=== PATIENT | male | born 1940 | race Caucasian/White ===

== ENCOUNTER 2024-03-09 16:15 | Emergency (ER) | payer OTHER ==
--- OUTSIDE RECORDS SUMMARY | 2024-03-09 16:18 | XMS REPORT | Continuity of Care Document ---
Author Name Unknown Address [address] [place] [address] [facility] Address [address] [place] [address] Care Team Providers Care Farmer [employer] Name Role Phone Artem Nunez Primary Care Physician [phone] TAYLOR TYLER Attending Clinician Anival Ceja MD Attending Clinician [phone] ANIVAL PIRES Attending Clinician Anival Huitron MD Admitting Clinician [phone] ANIVAL PIRES Admitting Clinician Pat littlejohn Payers Payer Name Policy Type Policy Number Effective Date Expirati on Date Source [employer] MANAGED MEDICARE PPO-HAMMAD [id number] 2022 00:00:00 Allergies, Adverse Reactions, Alerts Allergy Name Allergy Type Status Severity Reaction(s) Onset Date Inactive Date Treating Clinician Comments Source NO KNOWN ALLERGIE S Drug Class Active [facility] Social History Social Habit Start Date Stop Date Quantity Comments Source [facility] function 2024-01-30 00:00:00 2024-01-30 00:00:00 [facility] Exposure to SARS-CoV-2 (event) 2022-10-27 00:00:00 2022-11-06 10:03:00 Not sure [facility] Tobacco use and exposure 2022-10-18 00:00:00 2022-10-18 00:00:00 Smokeless tobacco non-user [facility] Sex assigned at 1940 00:00:00 1940 00:00:00 [facility] Smoking Status Start Date Stop Date Source Never smoked tobacco [facility] Medications Ordered Medication Name Filled Medication Name Start Date Stop Date Current Medication? Ordering Clinician Indication Dosage Frequency Signature (SIG) Comments Components Source donepeziL 5 mg tablet 01-29 10:17: 59 Yes 5mg Take 1 tablet by mouth at bedtime. [facility] memantine 5 mg tablet 01-29 00:00: 00 Yes [id number] 5mg Take 1 tablet by mouth in the morning. [facility] neomycin-po lymyxin-dex amethasone (MAXITROL) 3.5 mg/g-10,000 unit/g-0.1 % ophthalmic ointment 11-07 17:15: 00 11-07 17:19 :31 No PRN, Starting on Sat11/07/22 at 1115, Until Sat11/07/22 at 1119, Routine, Intra-op [facility] sodium chloride (NS) injection 11-07 17:13: 00 11-07 17:19 :31 No PRN, Starting on Sat11/07/22 at 1113, Until Sat11/07/22 at 1119, Routine, Intra-op [facility] dexamethaso ne (DECADRON PHOSPHATE) injection 11-07 17:13: 00 11-07 17:19 :31 No PRN, Starting on Sat11/07/22 at 1113, Until Sat11/07/22 at 1119, Routine, Intra-op [facility] ceFAZolin (ANCEF) injection 11-07 17:13: 00 11-07 17:19 :31 No PRN, Starting on Sat11/07/22 at 1113, Until Sat11/07/22 at 1119, GOLDEN, Intra-op [facility] carbachoL (MIOSTAT) 0.01 % intraocular injection 11-07 17:13: 00 11-07 17:19 :31 No PRN, Starting on Sat11/07/22 at 1113, Until Sat11/07/22 at 1119, Routine, Intra-op [facility] EPINEPHrine 1:1,000 (1 mg/mL) (ADRENALIN) injection 11-07 17:02: 00 11-07 17:19 :31 No PRN, Starting on Sat11/07/22 at 1102, Until Sat11/07/22 at 1119, Routine, Intra-op [facility] balanced salt irrig soln comb1 (BSS PLUS) ophthalmic solution 500 mL bag 11-07 17:02: 00 11-07 17:19 :31 No PRN, Starting on Sat11/07/22 at 1102, Until Sat11/07/22 at 1119, Routine, Intra-op [facility] chondroitin sulf-sod hyaluronate (DUOVISC VISCO ELASTIC) intraocular injection 11-07 17:02: 00 11-07 17:19 :31 No PRN, Starting on Sat11/07/22 at 1102, Until Sat11/07/22 at 1119, Routine, Intra-op [facility] water for irrigation irrigation solution 11-07 16:55: 00 11-07 17:19 :31 No PRN, Starting on Sat11/07/22 at 1055, Until Sat11/07/22 at 1119, Routine, Intra-op [facility] Hyaluronida se, Human Recomb. (HYLENEX) injection 11-07 16:51: 00 11-07 17:19 :31 No PRN, Starting on Sat11/07/22 at 1051, Until Sat11/07/22 at 1119, Routine, Intra-op [facility] eye block syringe 11 mL 11-07 16:51: 00 11-07 17:19 :31 No PRN, Starting on Sat11/07/22 at 1051, Until Sat11/07/22 at 1119, Intra-op [facility] cyclopent 1%-tropic 1%-phenyl 2.5%-ketor 0.5% (MYDRIATIC #5) ophthalmic solution syringe 0.5 mL 11-07 15:30: 00 11-07 15:27 :00 No .5mL 0.5 mL, Right Eye, ONCE, 1 dose, On Sat11/07/22 at 0930, Routine, DSU Pre-op [facility] lactated ringers IV infusion 1,000 mL 11-07 15:30: 00 11-07 15:26 :00 No 1000mL at 42 mL/hr, 1,000 mL, IV Infusion, ONCE, 1 dose, On Sat11/07/22 at 0930, Routine, DSU Pre-op [facility] lisinopriL 20 mg tablet 11-07 11:59: 54 01-29 00:00 :00 No 20mg Take 1 tablet by mouth in the morning. [facility] amLODIPine 5 mg tablet 11-07 11:59: 54 01-29 00:00 :00 No 5mg Take 5 mg by mouth in the morning. [facility] amLODIPine 5 mg tablet 10-08 00:00: 00 Yes 5mg Take 1 tablet by mouth in the morning. [facility] lisinopriL 20 mg tablet 10-08 00:00: 00 Yes 20mg Take 1 tablet by mouth in the morning. [facility] Vital Signs Vital Name Observation Time Observation Value Comments S ource Systolic blood pressure 2024-02-11 16:33:00 115 mm[Hg] [facility] Diastolic blood pressure 2024-02-11 16:33:00 70 mm[Hg] [facility] Heart rate 2024-02-11 16:33:00 56 /min [facility] Body height 2024-02-11 16:33:00 177.8 cm [facility] Body weight 2024-02-11 16:33:00 84.777 kg [facility] BMI 2024-02-11 16:33:00 26.82 kg/m2 [facility] Oxygen saturation in Arterial blood by Pulse oximetry 2024-02-11 16:33:00 96 /min [facility] Systolic blood pressure 2024-01-30 15:36:00 168 mm[Hg] [facility] Diastolic blood pressure 2024-01-30 15:36:00 84 mm[Hg] [facility] BMI 2024-01-30 15:14:00 26.80 kg/m2 [facility] Oxygen saturation in Arterial blood by Pulse oximetry 2024-01-30 15:14:00 98 /min [facility] Heart rate 2024-01-30 15:14:00 63 /min [facility] Respiratory rate 2024-01-30 15:14:00 18 /min [facility] Body height 2024-01-30 15:14:00 177.8 cm [facility] Body weight 2024-01-30 15:14:00 84.732 kg [facility] Systolic blood pressure 2022-11-07 17:35:00 157 mm[Hg] [facility] Diastolic blood pressure 2022-11-07 17:35:00 84 mm[Hg] [facility] Heart rate 2022-11-07 17:35:00 58 /min [facility] Respiratory rate 2022-11-07 17:35:00 20 /min [facility] Oxygen saturation in Arterial blood by Pulse oximetry 2022-11-07 17:35:00 98 /min [facility] Body temperature 2022-11-07 15:23:00 36.06 Leatha [facility] Body height 2022-11-06 16:15:00 175.3 cm [facility] Body weight 2022-11-06 16:15:00 79.379 kg [facility] BMI 2022-11-06 16:15:00 25.84 kg/m2 [facility] Systolic blood pressure 2022-11-07 15:23:00 163 mm[Hg] [facility] Diastolic blood pressure 2022-11-07 15:23:00 84 mm[Hg] [facility] Heart rate 2022-11-07 15:23:00 60 /min [facility] Body temperature 2022-11-07 15:23:00 36.06 Leatha [facility] Respiratory rate 2022-11-07 15:23:00 23 /min [facility] Oxygen saturation in Arterial blood by Pulse oximetry 2022-11-07 15:23:00 100 /min [facility] Body height 2022-11-06 16:15:00 175.3 cm [facility] Body weight 2022-11-06 16:15:00 79.379 kg [facility] BMI 2022-11-06 16:15:00 25.84 kg/m2 [facility] Procedures Procedure Date / Time Performed Performing Clinician Source PHACOEMULSIFICATION OF CATARACT WITH INTRAOCULAR LENS IMPLANT 2022-11-07 16:40:00 Anival Pires [facility] NO SHOW OR MISSED APPOINTMEN T POLICY ACKNOWLEDGEMENT 2022-11-05 15:11:54 Doctor Unassigned, [place] [facility] NO SHOW OR MISSED APPOINTMEN T POLICY ACKNOWLEDGEMENT 2022-11-05 15:11:54 Doctor Unassigned, [place] [facility] PATIENT FINANCIAL POLICY 2022-11-05 15:11:11 Doctor Unassigned, [place] [facility] PATIENT FINANCIAL POLICY 2022-11-05 15:11:11 Doctor Unassigned, [place] [facility] NOTICE OF BILLING PRACTICES FOR MEDICARE PATIENTS 2022-11-05 15:10:46 Doctor Unassigned, [place] [facility] NOTICE OF BILLING PRACTICES FOR MEDICARE PATIENTS 2022-11-05 15:10:46 Doctor Unassigned, [place] [facility] CONSENT/REFUSAL FOR DIAGNOSI S AND TREATMENT 2022-11-05 15:10:08 Doctor Unassigned, [place] [facility] CONSENT/REFUSAL FOR DIAGNOSI S AND TREATMENT 2022-11-05 15:10:08 Doctor Unassigned, [place] [facility] ASSIGNMENT OF BENEFITS 2022-11-05 15:09:44 Doctor Unassigned, [place] [facility] ASSIGNMENT OF BENEFITS 2022-11-05 15:09:44 Doctor Unassigned, [place] [facility] Encounters Start Date/Time End Date/Time Encounter Type Admission Type Attending [facility] Facility Care Department Encounter ID Source 2024-02-11 11:30:00 2024-02-11 12:16:34 Outpatient R TAYLOR TYLER [facility] [id number] [facility] 2024-02-11 11:30:00 2024-02-11 12:16:34 [facility] 1.2.840.114 350.1.13.10 4.2.7.2.686 [id number] [facility] 2024-02-07 00:00:00 2024-02-07 14:41:53 [facility] 1.2.840.114 350.1.13.10 4.2.7.2.686 [id number] [facility] 2024-01-30 10:00:00 2024-01-30 11:08:19 Outpatient R BRAYAN TYLERSSICA [facility] [id number] [facility] 2024-01-30 10:00:00 2024-01-30 11:08:19 Office Visit Skyler [facility] 1.2.840.114 350.1.13.10 4.2.7.2.686 [id number] [facility] 2022-11-07 09:15:00 2022-11-07 11:45:00 Hospital Encounter Anival Pires [facility] [id number] 350.1.13.10 4.2.7.2.686 [id number] [facility] 2022-11-07 09:15:00 2022-11-07 11:45:00 Outpatient R ANIVAL PIRES [facility] OPH [id number] [facility] 2022-11-07 10:10:00 2022-11-07 10:44:00 Surgery Anival Pires [facility] 1.2.840.114 350.1.13.10 4.2.7.2.686 [id number] [facility] Notes Date/Time Note Provider Source 2024-02-07 14:39:48 [id number]:39:48F ormatting of this note might be different from the original.Herson reports that he is requesting provider write a letter, per advised by Hansel, that pt should be admitted involuntarily so that he can "be put in to a home." Herson requested to schedule an appt to speak with provider about this letter being drafted. Appt scheduled for 02/11/24. [id number] encounter [id number]:41:53Telephone encounter [id number] .[id number] for patient [id number] C-CDA narrative [address] Pa[id number] [id number]: 41:531.2.840.164242.1.72.3.15|1.2.84 [id number] 29840 [facility] 2024-02-07 12:04:58 [id number]:04:58F ormatting of this note might be different from the original.Copied from [facility] #[id number]. Topic: Clinical - Medical Advice>> February 07, 2024 12:04 PM Patient Acute Dialysis Registered Nurse wrote:sherwin pt son is calling wants to speak to nurse regarding his concerns on signing a nursing home form for the rn cvor for his disablitiyplease [id number] signed by Kei Baer at 02/07/2024 2:41 PM [id number] encounter [id number]:41:53Telephone encounter [id number] .[id number] for patient qozw10363-4FvsfDUTZBBJBXVVCewyblvpi C-CDA narrative [id number] M [address] Ol[id number] NLOFWCIGMSVTPTUJESNCDN1176-48-50M34: 41:531.2.840.107574.1.72.3.15|1.2.84 [id number]_21020 [address] [facility]
[2024-03-09 17:28] LABS: Specific Gravity 1.007 (1.005-1.030); Sqamous Epithelial None Seen /HPF (None Seen); Urine Bacteria None Seen /HPF (<20); Urine Bilirubin NEGATIVE (Negative); Urine Blood Negative (Negative); Urine Clarity Clear (Clear); Urine Color Light-Yellow (Yellow); Urine Culture Reflex Order NOT NEEDED; Urine Glucose NEGATIVE (Negative); Urine Ketones NEGATIVE (Negative); Urine Micro Reflex YN NO BILL MICROSCOPIC; Urine Nitrite NEGATIVE (Negative); Urine Protein NEGATIVE (Negative); Urine RBC <5 /HPF (None Seen); Urine Urobilinogen Normal (Normal); Urine WBC <5 /HPF (<5)
[2024-03-09 17:30] LABS: Absolute Eosinophils 0.1 K/uL (0-0.5); Absolute Lymphocytes (CBC) 1.1 K/uL (0.7-4.9); Absolute Monocytes 0.7 K/uL (0.1-1.3); Absolute Neutrophil 4.8 K/uL (1.8-8.0); Basophils % 0.5 % (0-1.3); Eosinophils % 1.5 % (0-4.4); Hematocrit 40.1 % (39.6-49.0); Hemoglobin 13.5 g/dL (13.6-17.9); Lymphocytes % 15.9 % (15.3-44.8); MCH 32.8 pg (27.0-35.0); MCHC 33.6 g/dL (32.0-36.0); MCV 97.6 fL (80-100); MPV 7.6 fL (7.6-11.3); Monocytes % 9.9 % (3.3-12.3); Neutrophils % 72.2 % (41.7-73.7); Platelets 240 thou/uL (152-406); Red Cell Distribution Width 13.1 % (12.1-15.2)
[2024-03-09 17:31] LABS: PT Prothrombin Time 11.6 SECONDS (9.5-12.5); Protime INR 1.06
[2024-03-09 17:45] LABS: Albumin 3.1 g/dL (3.4-5.0); Albumin/Globulin Ratio 0.8 (1.1-1.8); Anion Gap 8.7 mEq/L (5.0-15.0); Bilirubin Direct 0.3 mg/dL (0-0.2); Bilirubin Total 1.3 mg/dL (0.2-1.0); Globulin 3.7 g/dL (2.3-3.5); Magnesium 2.2 mg/dL (1.6-2.4); Potassium 3.7 mEq/L (3.5-5.1); Protein, Total 6.8 g/dL (6.4-8.2); Troponin High Sensitivity 5.2 pg/mL (<58.9)
--- NOTE | 2024-03-09 17:57 | RAD REPORT ---
EXAM DESCRIPTION: CT - Head Brain Wo Cont - 03/09/2024 5:04 pm CLINICAL HISTORY: MENTAL STATUS CHANGE COMPARISON: No comparisons TECHNIQUE: Noncontrast head CT images were obtained without IV contrast. Multiplanar reformats were generated and reviewed. All CT scans are performed using dose optimization technique as appropriate and may include automated exposure control or mA/KV adjustment according to patient size. FINDINGS: No intracranial hemorrhage, mass, or edema. Midline structures are unremarkable. Normal ventricular caliber for age. Shoemaker-white matter differentiation is preserved, without evidence of acute infarct. No abnormal extra- axial fluid collections. Mastoid air cells and visualized portions of the paranasal sinuses are clear. No acute bony findings. IMPRESSION: No evidence of an acute intracranial process.
--- NOTE | 2024-03-09 18:59 | RAD REPORT ---
EXAM DESCRIPTION: Zarina Single View03/09/2024 4:52 pm CLINICAL HISTORY: altered mental status COMPARISON: No comparisons TECHNIQUE: Portable AP view of the chest. FINDINGS: The lungs are clear. No pneumothorax or effusion. The cardiomediastinal contours are unre markable. IMPRESSION: No acute cardiopulmonary process.
--- NOTE | 2024-03-09 20:37 | EDPHYS ---
Physician Documentation [facility] Name: Lior Ashley Age: 83 yrs Sex: Male : 1940 Arrival Date: 03/09/2024 Time: 16:15 Bed 2 Private MD: ED Physician Lyle Austin HPI: 03/09 16:40 This 83 yrs old Male presents to ER via EMS with complaints of Altered Mental Status. cp 16:40 The patient presents with confusion. Onset: The symptoms/episode began/occurred cp gradually. Possible causes: hx of dementia. 16:40 The patient presents to the emergency department with suicide ideation. cp 16:40 Patient's baseline: Neuro: alert but confused, Motor: no deficits, Ambulation: walks cp without assistance, Speech: normal. 16:40 Patient detained by law enforcement who reports patient was found wondering outside and cp reported suicidal ideations. Historical: - Allergies: 16:27 No Known Allergies; ld1 - PMHx: 16:27 Hypertensive disorder; Dementia; ld1 - Immunization history:: Adult Immunizations. - Infectious Disease History:: Denies. - Social history:: Smoking status: Patient denies any tobacco usage or history of. ROS: 16:45 Constitutional: Negative for body aches, chills, fever, poor PO intake, cp 16:45 Cardiovascular: Negative for chest pain, cp 16:45 Respiratory: Negative for cough, shortness of breath, wheezing, 16:45 Abdomen/GI: Negative for abdominal pain, vomiting, diarrhea, constipation, 16:45 : Negative for burning with urination, 16:45 Neuro: Negative for headache, weakness, 16:45 Psych: Positive for suicidal ideation, 16:45 All other systems are negative, Exam: 16:50 Constitutional: The patient appears in no acute distress, alert, awake, comfortable, cp non-diaphoretic, non-toxic, well developed, well nourished, 16:50 Head/Face: Normocephalic, atraumatic. cp 16:50 Eyes: Periorbital structures: appear normal, Pupils: equal, round, and reactive to light and accomodation, Extraocular movements: intact throughout, Conjunctiva: normal, no exudate, no injection, Sclera: no appreciated abnormality, Lids and lashes: appear normal, bilaterally, 16:50 ENT: External ear(s): are unremarkable, Nose: is normal, Mouth: Lips: moist, Oral cp mucosa: moist, Posterior pharynx: Airway: no evidence of obstruction, patent, 16:50 Chest/axilla: Inspection: normal, 16:50 Cardiovascular: Rate: normal, Rhythm: regular, 16:50 Respiratory: the patient does not display signs of respiratory distress, Respirations: normal, no use of accessory muscles, no retractions, labored breathing, is not present, Breath sounds: are clear throughout, no decreased breath sounds, no stridor, no wheezing, 16:50 Abdomen/GI: Inspection: abdomen appears normal, Palpation: abdomen is soft and non-tender, in all quadrants, 16:50 Neuro: Orientation: to person, situation, Mentation: able to follow commands, Motor: moves all fours, no focal deficits, Gait: is steady, 16:50 Psych: Behavior/mood is pleasant, cooperative, Affect is calm, Delusions/hallucinations cp are not present. 17:30 ECG was reviewed by the Attending Physician. cp Vital Signs: 16:28 BP 165 / 74; Pulse 80; Resp 18; Temp 98.4(TE); Pulse Ox 98% on R/A; Weight 89.81 kg; ld1 Height 5 ft. 10 in. ; Pain 0/10; 17:19 BP 168 / 76; Pulse 76; Resp 18; Pulse Ox 98% on R/A; ld1 17:57 BP 159 / 84; Pulse 70; Resp 18; Pulse Ox 99% on R/A; ld1 19:30 BP 180 / 78; Pulse 71; Resp 17; Pulse Ox 98% on R/A; lc8 20:30 BP 159 / 71; Pulse 72; Resp 17; Pulse Ox 100% on R/A; lc8 16:28 Body Mass Index 28.41 (89.81 kg, 177.8 cm) ld1 16:28 Pain Scale: Adult ld1 MDM: 16:29 Patient medically screened. cp 20:35 Data reviewed: vital signs, nurses notes, lab test result(s), EKG, radiologic studies, cp CT scan, and as a result, I will discharge patient. 20:35 Differential diagnosis: acute psychotic break, depression, psychosis secondary to cp non-compliance. I considered the following discharge prescriptions or medication management in the emergency department Medications were administered in the Emergency Department. See MAR. Independent interpretation of the following test(s) in the Emergency Department EKG: See my EKG interpretation above. Counseling: I had a detailed discussion with the patient and/or guardian regarding the historical points, exam findings, and any diagnostic results supporting the discharge/admit diagnosis, lab results, radiology results, the need for outpatient follow up, a psychiatrist, to return to the emergency department if symptoms worsen or persist or if there are any questions or concerns that arise at home. ED course: Patient evaluated by [facility] and felt to be stable for discharge and outpatient treatment. 03/09 16:36 Order name: Basic Metabolic Panel; Complete Time: 17:47 03/09 17:48 Interpretation: Normal except: GLUC 121; GFR 69. 03/09 16:36 Order name: CBC with Diff; Complete Time: 17:47 03/09 17:48 Interpretation: Normal except: RBC 4.10; HGB 13.5. 03/09 16:36 Order name: LFT's; Complete Time: 17:47 03/09 17:48 Interpretation: Normal except: AST 11; BILIT 1.3; BILID 0.3; IBILI, CALC 1.0; ALB 3.1; cp GLOB 3.7; A/G 0.8. 03/09 16:36 Order name: Magnesium; Complete Time: 17:47 03/09 16:36 Order name: PT-INR; Complete Time: 17:47 03/09 16:36 Order name: Troponin HS; Complete Time: 17:47 03/09 16:36 Order name: Urinalysis W/Microscopic; Complete Time: 17:47 03/09 17:48 Interpretation: Reviewed. 03/09 16:36 Order name: XRAY Chest (1 view); Complete Time: 19:03 03/09 19:03 Interpretation: Report review. 03/09 16:36 Order name: CT Head Brain wo Cont; Complete Time: 19:03 03/09 19:03 Interpretation: Report reviewed. 03/09 16:36 Order name: Cardiac monitoring; Complete Time: 17:19 03/09 16:36 Order name: EKG - Nurse/Tech; Complete Time: 17:19 03/09 16:36 Order name: IV Saline Lock; Complete Time: 17:19 03/09 16:36 Order name: Labs collected and sent; Complete Time: 17:19 cp 03/09 16:36 Order name: O2 Per Protocol; Complete Time: 16:52 cp 03/09 16:36 Order name: O2 Sat Monitoring; Complete Time: 16:52 cp EC:30 Rate is 75 beats/min. Rhythm is regular. IL interval is normal. QRS interval is normal. cp QT interval is normal. Interpreted by me. Reviewed by me. Administered Medications: No medications were administered Disposition Summary: 03/09/24 20:36 Discharge Ordered Notes: Location: Home cp Problem: new cp Symptoms: have improved cp Condition: Stable cp Diagnosis - Dementia in other diseases classified elsewhere without behavioral disturbance cp Followup: cp - With: Private Physician - When: 2 - 3 days - Reason: Recheck today's complaints Discharge Instructions: - Dementia cp - Discharge Summary Sheet ty Forms: - Medication Reconciliation Form cp - Antibiotic Education cp - Prescription Opioid Use cp - Patient Portal Instructions cp - Leadership Thank You Letter cp - SBAR form ty Signatures: Dispatcher [employer] EDMS Sourav Dominguez PA PA cp Suzy Burger, RN RN ld1 Corrections: (The following items were deleted from the chart) 16:37 16:37 BASIC METABOLIC PANEL+C.LAB.BRZ ordered. EDMS EDMS 16:37 16:37 CBC+H.LAB.BRZ ordered. EDMS EDMS 16:37 16:37 HEPATIC FUNCTION+C.LAB.BRZ ordered. EDMS EDMS 16:37 16:37 MAGNESIUM+C.LAB.BRZ ordered. EDMS EDMS 16:37 16:37 PROTIME (+INR)+COAG.LAB.BRZ ordered. EDMS EDMS 16:37 16:37 Troponin High Sensitivity+C.LAB.BRZ ordered. EDMS EDMS 16:37 16:37 Urinalysis W/Microscopic+U.LAB.BRZ ordered. EDMS EDMS 16:37 16:37 Chest Single View+RAD.RAD.BRZ ordered. EDMS EDMS 16:37 16:37 Head Brain Wo Cont+CT.RAD.BRZ ordered. EDMS EDMS
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
[2024-03-09 21:29] VITALS: TEMP 98.4
[2024-03-09 21:51] VITALS: BP 159/71; O2SAT 100
--- NOTE | 2024-03-10 14:15 | EKG ---
Test Date: 2024-03-09 Test Time: 17:19:42 Steel Fitter: ADRIANA MEASUREMENT RESULTS: Intervals: Rate: 75 ID: [id number] QRSD: 92 QT: 400 QTc: 446 [place]: P: 30 ID: [id number] QRS: -9 T: 19 INTERPRETIVE STATEMENTS: Normal sinus rhythm Normal ECG No previous ECG available for comparison Electronically Signed On 03-10-24 14:12:26 CDT by Josh Mock
== END 2024-03-09 21:16 | disposition home or self-care (01) ==
LOC: ER 16:15
DX: F03.90 Unspecified dementia, unspecified severity, without behavioral disturbance, psychotic disturbance, mood disturbance, and anxiety (principal); R45.851 Suicidal ideations
CPT/HCPCS: 36415; 70450; 71045; 80048; 80076; 81001; 83735; 84484; 85025; 85610; 93005; 99284